=== PATIENT | female | born 2005 | race African-American/Black ===

== ENCOUNTER 2025-04-15 14:17 | Emergency (ER) | payer BC, SELFPAY ==
[2025-04-15 14:22] VITALS: BP 142/70
--- NOTE | 2025-04-15 16:00 | ED.GENMED ---
History of Present Illness
General
Chief Complaint: Skin Problem
Time Seen by Provider: 04/15/25 15:16
History of Present Illness
History of Present Illness:
19-year-old female presents to the emergency department for evaluation of a 'vaginal cyst' that has been present for several months but over the past few days increased in size and became increasingly painful. Was sent to the ED by urgent care. No
fevers or chills. No history of similar
Review of Systems
Review of Systems
Allergies reviewed?: Yes
All Other Systems: ROS reviewed and negative except as documented in HPI and ROS
Phy Exam
Physical Exam
Physical Exam:
GEN: Well appearing, NAD, WDWN
HEENT: Oral mucosa moist, no scleral icterus
Cardiac: Regular rate
Lung: No respiratory distress, no tachypnea
: Large fluctuant Bartholin abscess, tender to palpation
MSK: No gross deformity or injuries
Skin: Good color, no pallor or jaundice, no rashes
Neuro: AO x3, moves all extremities freely
Psych: Calm, cooperative
Course
Vital Signs
Initial and Last Documented VS:
Initial Vital Signs
Temp Pulse Resp BP Pulse Ox
98.7 F 100 16 142/70 98
04/15/25 14:22 04/15/25 14:22 04/15/25 14:22 04/15/25 14:22 04/15/25 14:22
Last Documented Vital Signs
Temp Pulse Resp BP Pulse Ox
98.7 F 100 16 142/70 98
04/15/25 14:22 04/15/25 14:22 04/15/25 14:22 04/15/25 14:22 04/15/25 16:04
Procedures
Incision/Drainage/Joint Aspiration
L bartholin gland:
Anethesia: 1% Lidocaine with Epi
Preparation: cleaned with alcohol wipe
Type of procedure: incise and drain
Nature of site: hematoma
Description of abscess: less than 3cm
Loculations broken up: Yes
How much fluid was obtained?: large amount
Fluid description: bloody
Treatment: other (Irrigated and sutured with 5-0 vicryl x 1)
Additional information:
Drainage purely clotted blood, no evidence of purulence
MDM/Problems Addressed
MDM/Problems Addressed:
Interestingly this appeared to be a partial hematoma/proximal cyst with hemorrhage as there was no purulent output only clotted blood. The wound was then sutured and the patient was advised to perform sitz bath's and follow-up with her [employer]ORDINATOR at her
earliest convenience.
*Pulse Oximetry
SaO2: 98
Oxygen Mode of Delivery: Room air
Patient hypoxic: no
*Critical Care Note
Total Time (30-74mins, 75-104mins- exclusive of procedures): Not Applicable
ED Attending Note
-
Portions of this chart may have been created with voice recognition software.� Occasional wrong word or��sound alike� substitutions may have occurred due to the inherent limitations of voice recognition software.
Discharge Plan
Departure
Patient Disposition: Home (Routine Discharge)
Date of Disposition: 04/15/25
Time of Disposition: 16:02
Patient with high blood pressure during this ER visit?: No
Discharge Problem:
Bartholin Gland Hematoma
Referrals:
Merle Murillo, DO [Family Provider, General]
Activity Restrictions/Additional Instructions:
Keep area dry for remainder of today
Starting tomorrow, rinse gently with soap and water each day
Beginning in 5 days (Saturday) You may soak the area in warm salt water baths to reduce swelling
The suture will dissolve and likely will fall out in 10-14 days
Contact your OBGYN for a follow up visit AMPARO
Interventions
Interventions:
*Risk Screen - Suicide Last Done: 04/15/25 14:22
*General Assessment Last Done: 04/15/25 14:22
*Neglect/Abuse Screening Last Done: 04/15/25 14:22
*ED COVID-19 Vaccine History Last Done: 04/15/25 14:22
*ED Influenza Vaccine History Last Done: 04/15/25 14:22
*Nursing Disposition Last Done: 04/15/25 16:40
Discharge Date and Time
Discharge Date/Time: 04/15/25 16:41
Print Language: TURKISH
== END 2025-04-15 16:41 | disposition home or self-care (01) ==
LOC: EMR 14:17
PROVIDERS: EMERGENCY PHYSICIAN Emergency Medicine; FAMILY PHYSICIAN Student in an Organized Health Care Education/Training Program
DX: N75.0 Cyst of Bartholin's gland (principal)
CPT/HCPCS: 10160; 99283